=== PATIENT | male | born 1955 | race American Indian/Alaskan Native ===

== ENCOUNTER 2021-12-03 16:38 | Emergency (ER) | payer OTHER ==
--- NOTE | 2021-12-03 17:15 | XRay Report ---
CHEST 1 VIEW 12/03/2021 4:10 PM INDICATION / CLINICAL INFORMATION: dizziness. COMPARISON: None available. FINDINGS: SUPPORT DEVICES: None. HEART / MEDIASTINUM: No significant abnormality. LUNGS / PLEURA: No significant pulmonary or pleural abnormality. No pneumothorax. ADDITIONAL FINDINGS: No significant additional findings. IMPRESSION: 1. No acute findings. Signer Name: Branden Duvall MD Signed: 12/03/2021 5:11 PM Workstation Name: [id number]
--- NOTE | 2021-12-03 18:17 | Cat Scan Report ---
NONENHANCED CT SCAN OF THE HEAD: INDICATION / CLINICAL INFORMATION: 66 years Male; headache decreased vision sudden onset. TECHNIQUE: Routine CT head without contrast. All CT scans at this location are performed using CT dos e reduction for ALARA by means of automated exposure control. COMPARISON: None. FINDINGS: BRAIN / INTRACRANIAL CONTENTS: No chronic infarct or focal atrophy. Normal brain volume and ventricul ar/sulcal size for age. No significant white matter abnormality. CRANIOCERVICAL JUNCTION: No significant abnormality. ORBITS: No significant abnormality of visualized orbits. SINUSES / MASTOIDS: Retention cyst in the right maxillary sinus ADDITIONAL FINDINGS: None. IMPRESSION: No acute focal parenchymal lesion Signer Name: Castillo Ellis MD Signed: 12/03/2021 6:13 PM Workstation Name: [id number]
[2021-12-03 18:42] LABS: Basophils # (Auto) 0.1 K/mm3 (0.0-0.1); Basophils % (Auto) 0.7 % (0.0-1.8); Eosinophils # (Auto) 0.1 K/mm3 (0.0-0.4); Eosinophils % (Auto) 1.6 % (0.0-4.3); Hematocrit 46.8 % (35.5-45.6); Hemoglobin 15.2 gm/dl (11.8-15.2); Lymphocytes # (Auto) 1.6 K/mm3 (1.2-5.4); Lymphocytes % (Auto) 20.8 % (13.4-35.0); Mean Corpuscular HGB Conc 33 % (32-34); Mean Corpuscular Volume 93 fl (84-94); Monocytes # (Auto) 0.7 K/mm3 (0.0-0.8); Monocytes % (Auto) 9.2 % (0.0-7.3); Platelet Count 181 K/mm3 (140-440); Red Blood Count 5.01 M/mm3 (3.65-5.03); Red Cell Distribution Width 13.9 % (13.2-15.2)
[2021-12-03 19:04] LABS: Alanine Aminotransferase 19 units/L (7-56); Albumin 4.8 g/dL (3.9-5); BUN/Creatinine Ratio 15; Blood Urea Nitrogen 15 mg/dL (9-20); Calcium 9.8 mg/dL (8.4-10.2); Hemolysis Index 5
[2021-12-03] MEDS ORDERED: BALANCED SALT IRRIG 1 DROPS, TETRACAINE 0.5% 1 DROPS, FLUORESCEIN 1 MG OS ONE (21:34)
[2021-12-03 22:03] VITALS: BP 150/89
[2021-12-03] MEDS ORDERED: TETRACAINE 0.5% OPHTH SOLN 4ML OS ONE ×2 (22:05)
[2021-12-03] MEDS ORDERED: BALANCED SALT IRRIG (BSS) OPHTH SOLN 15 ML OS ONE ×2 (22:05)
[2021-12-03] MEDS ORDERED: FLUORESCEIN 1 MG STRIP OP ONE (22:05)
--- NOTE | 2021-12-03 22:23 | Emergency Department Report ---
ED Eye Problem HPI - General Chief complaint: Eye Problems Stated complaint: DIZZINESS, SHARP EYE PAIN Time Seen by Provider: 12/03/21 21:23 Source: patient Mode of arrival: Ambulatory Limitations: No Limitations - History of Present Illness Initial comments: 66-year male with no significant past medical history presents to the hospital complaining of spontaneous left red eye. Patient had episodic episode of dizziness, sharp left eye pain followed by redness to the medial portion of his left eye sudden onset about 3:45 PM. Patient came to the hospital within 15 minutes. His blood pressure was significantly elevated and he was protocol with multiple labs and imaging including a CT head, chest x-ray, and EKG. At time of my evaluation patient states he does not have any pain and has not had any pain since that episodic sharp pain during symptom onset. He denies change in his baseline vision. His blood pressure has also spontaneously improved. Patient does not wear contact lenses or glasses. States that the vision in his right eye is typically better than his left at baseline. Patient is visiting [place] from [place] - Related Data Allergies Allergy/AdvReac Type Severity Reaction Status Date / Time No Known Allergies Allergy Verified 12/03/21 16:50 ED Review of Systems ROS: Stated complaint: DIZZINESS, SHARP EYE PAIN Other details as noted in HPI Comment: All other systems reviewed and negative ED Physical Exam - General Limitations: No Limitations - Other Other exam information: General: No acute distress Head: Atraumatic Eyes: Pupils equal reactive to light bilaterally. Left eye medial sclera with dilated red vessels localized to 1 area of the eye. Visual acuity left 20/80, right 20/40, bilateral 20/30. No fluorescein uptake with staining. No photophobia. Extraocular was intact. Medial and lateral visual field intact ENT: Moist mucous membranes Neck: Normal appearance, no midline tenderness Chest: Clear to auscultation bilaterally CV: Regular rate and rhythm Abdomen: Soft, normal bowel sounds, nontender, nondistended, no rebound or guarding Back: Normal inspection Extremity: Normal inspection, full range of motion Neuro: Alert O x 3, no facial asymmetry, speech clear, no gross motor sensory deficit Psych: Appropriate behavior Skin: No rash ED Course Vital Signs 12/03/21 12/03/21 12/03/21 16:49 21:25 21:31 Temperature 98.6 F Pulse Rate 86 65 67 Respiratory 16 20 18 Rate Blood Pressure 148/85 Blood Pressure 184/104 [Left] O2 Sat by Pulse 98 98 99 Oximetry 12/03/21 12/03/21 12/03/21 21:47 22:00 22:01 Temperature Pulse Rate 67 68 Respiratory 15 15 12 Rate Blood Pressure 150/89 150/89 Blood Pressure [Left] O2 Sat by Pulse 98 100 99 Oximetry 12/03/21 22:03 Temperature 97.9 F Pulse Rate Respiratory Rate Blood Pressure Blood Pressure [Left] O2 Sat by Pulse Oximetry ED Medical Decision Making - Lab Data Result diagrams: 12/03/21 18:11 12/03/21 18:11 Lab Results 12/03/21 12/03/21 Range/Units 18:11 18:11 WBC 7.6 (4.5-11.0) K/mm3 RBC 5.01 (3.65-5.03) M/mm3 Hgb 15.2 (11.8-15.2) gm/dl Hct 46.8 H (35.5-45.6) % MCV 93 (84-94) fl MCH 30 (28-32) pg MCHC 33 (32-34) % RDW 13.9 (13.2-15.2) % Plt Count 181 (140-440) K/mm3 Lymph % (Auto) 20.8 (13.4-35.0) % Cooper % (Auto) 9.2 H (0.0-7.3) % Eos % (Auto) 1.6 (0.0-4.3) % Baso % (Auto) 0.7 (0.0-1.8) % Lymph # (Auto) 1.6 (1.2-5.4) K/mm3 Cooper # (Auto) 0.7 (0.0-0.8) K/mm3 Eos # (Auto) 0.1 (0.0-0.4) K/mm3 Baso # (Auto) 0.1 (0.0-0.1) K/mm3 Seg Neutrophils % 67.7 (40.0-70.0) % Seg Neutrophils # 5.1 (1.8-7.7) K/mm3 Sodium 140 (137-145) mmol/L Potassium 4.5 (3.6-5.0) mmol/L Chloride 101.1 (98-107) mmol/L Carbon Dioxide 29 (22-30) mmol/L Anion Gap 14 mmol/L BUN 15 (9-20) mg/dL Creatinine 1.0 (0.8-1.3) mg/dL Estimated GFR > 60 ml/min BUN/Creatinine Ratio 15 % Glucose 96 (75-100) mg/dL Calcium 9.8 (8.4-10.2) mg/dL Total Bilirubin 0.30 (0.1-1.2) mg/dL AST 14 (5-40) units/L ALT 19 (7-56) units/L Alkaline Phosphatase 36 (35-129) units/L Troponin T < 0.010 (0.00-0.029) ng/mL Total Protein 6.8 (6.3-8.2) g/dL Albumin 4.8 (3.9-5) g/dL Albumin/Globulin Ratio 2.4 % - Radiology Data Radiology results: report reviewed NONENHANCED CT SCAN OF THE HEAD: INDICATION / CLINICAL INFORMATION: 66 years Male; headache decreased vision sudden onset. TECHNIQUE: Routine CT head without contrast. All CT scans at this location are performed using CT dose reduction for ALARA by means of automated exposure control. COMPARISON: None. FINDINGS: BRAIN / INTRACRANIAL CONTENTS: No chronic infarct or focal atrophy. Normal brain volume and ventricular/sulcal size for age. No significant white matter abnormality. CRANIOCERVICAL JUNCTION: No significant abnormality. ORBITS: No significant abnormality of visualized orbits. SINUSES / MASTOIDS: Retention cyst in the right maxillary sinus ADDITIONAL FINDINGS: None. IMPRESSION: No acute focal parenchymal lesion CHEST 1 VIEW 12/03/2021 4:10 PM INDICATION / CLINICAL INFORMATION: dizziness. COMPARISON: None available. FINDINGS: SUPPORT DEVICES: None. HEART / MEDIASTINUM: No significant abnormality. LUNGS / PLEURA: No significant pulmonary or pleural abnormality. No pneumothorax. ADDITIONAL FINDINGS: No significant additional findings. IMPRESSION: 1. No acute findings. - Medical Decision Making 66-year-old male with painless medial left eye. I suspect episcleritis versus subconjunctival hemorrhage. Patient does not endorse any change in his visual acuity and states that the redness has improved since ED stay. I have low suspicion for acute closed angle glaucoma , scleritis (due to lack of pain), or conjunctivitis. No signs of corneal abrasion on exam. Spontaneous improvement in blood pressure without ED treatment and labs and imaging test unremarkable. Patient encouraged to follow-up with ophthalmology Critical Care Time: No Critical care attestation.: If time is entered above; I have spent that time in minutes in the direct care of this critically ill patient, excluding procedure time. ED Disposition Clinical Impression: Redness of eye, left, Episcleritis Disposition: HOME / SELF CARE / HOMELESS Is pt being admited?: No Condition: Stable Instructions: Scleritis and Episcleritis Additional Instructions: At this time with diagnosis appears to be episcleritis. I recommend that you follow-up with a quill layer/panel monitor as soon as possible for further in- depth eye examination and clarification of diagnosis. Take anti-inflammatory medication such as Motrin or Aleve and use lubricating drops and cold compresses as directed by your discharge instructions. Please return if symptoms worsen including worsening pain or vision loss Referrals: NAZANIN GILES MD [Staff Physician] - 3-5 Days (Label Printer) REJI HUSSEIN MD [Staff Physician] - 3-5 Days (Label Printer) Time of Disposition: 22:22
--- NOTE | 2021-12-04 19:51 | Electrocardiograph Report ---
[facility] Test Date: 2021-12-03 Test Time: 16:53:57 Pat Name: JULIENNE MARLEY Department: Room: Gender: M [employer] Supervisor: HAFSA : 1955 Requested By: ASTRID PULIDO Order Number: [id number] Reading MD: Tita Cochran Measurements Intervals [place] Rate: 81 P: 37 CA: 119 QRS: 7 QRSD: 103 T: 42 QT: 387 QTc: 450 Interpretive Statements Sinus rhythm No previous ECG available for comparison Electronically Signed On 12-04-2021 19:51:28 EDT by Tita Cochran
== END 2021-12-03 23:08 | disposition home or self-care (01) ==
LOC: ED 16:38
DX: H57.9 Unspecified disorder of eye and adnexa (principal); H15.102 Unspecified episcleritis, left eye
CPT/HCPCS: 36415; 70450; 71046; 80053; 84484; 85025; 93005; 99284; 99285